=== PATIENT | male | born 1965 | race Caucasian/White ===

== ENCOUNTER 2024-01-11 21:08 | Emergency (ER) | payer BC ==
[~2024-01-11] VITALS: Ht 170.2 cm; Wt 86.2 kg
[2024-01-12] MEDS ORDERED: Ketorolac Tromethamine 30mg Vial IV ONE (04:00)
[2024-01-12] MEDS ORDERED: Lidocaine 4% 1 Patch TOP ONE (04:00)
[2024-01-12] MEDS ORDERED: Ketorolac Tromethamine 30mg Vial IM ONE (04:05)
== END 2024-01-12 04:20 | disposition home or self-care (01) ==
LOC: ER 21:08
DX: M62.830 Muscle spasm of back (principal)
CPT/HCPCS: 71046; 96372; 99283-25; A9270; J1885